=== PATIENT | male | born 1995 | race Caucasian/White ===

== ENCOUNTER 2016-02-16 01:06 | Emergency (ER) ==
[2016-02-16 01:24] VITALS: BP 116/079
--- NOTE | 2016-02-16 01:33 | PROVIDER DOCUMENTATION ---
HPI-Musculoskeletal Pain/Inj - GENERAL Chief Complaint: Back Injury Stated Complaint: BACK INJURY Time Seen by Provider: 02/16/16 01:25 Source: patient - HX OF PRESENT ILLNESS-MUSKULOSKELTAL Nature of Presenting Problem: 20 y/o WM c/o back pain after an injury on , where a piece of equipment fell on his back, with obvious ecchymosis on the lumbar area. States he has not been over to bend over without pain since then. He was bent over all day today [place] the [place] and his back is still hurting. He wants to be released back to work and was sent here by work. Denies bowel or bladder incontinence, saddle anesthesias or paresthesias. Pain in the lumbar area, non radiating. Review of Systems - Adult - REVIEW OF SYSTEMS - ADULT Constitutional: reports: no symptoms reported. denies: chills, fever, fatique Eyes: reports: no symptoms reported. denies: blurred vision, double vision, eye pain Ears, Nose, Mouth & Throat: reports: no symptoms reported. denies: ear pain, nose pain, throat pain Cardiovascular: reports: no symptoms reported. denies: chest pain, palpitations Respiratory: reports: no symptoms reported. denies: cough, shortness of breath , wheezing Gastrointestinal: reports: no symptoms reported. denies: abdominal pain, diarrhea, nausea, vomiting Genitourinary: reports: no symptoms reported. denies: dysuria, discharge, frequency, incontinence Musculoskeletal: reports: see HPI, back pain. denies: bone pain, muscle aches Integumentary: reports: no symptoms reported. denies: rash Neurological: reports: no symptoms reported. denies: headache/migraines Psychiatric: reports: no symptoms reported Endocrine: reports: no symptoms reported Hematologic/Lymphatic: reports: no symptoms reported Allergic/Immunologic: reports: no symptoms reported All Other Systems: Reviewed and Negative Past History - Adult - PAST MEDICAL HISTORY-ADULT Review of Records: reports: Old Records Reviewed, Nursing Assessment Review, Medications Reviewed, Social history reviewed & non-contributory. Major Childhood Illnesses: reports: denies history Cardiovascular: reports: denies history Respiratory: reports: denies history Gastrointestinal: reports: denies history Genitourinary: reports: denies history Musculoskeletal: reports: denies history Neurological: reports: denies history Endocrine/Immune: reports: denies history Other Conditions: reports: MRSA, other (Staf Infection) - PRIOR SURGERIES/PROCEDURES Surgical/Procedure History: reports: tonsillectomy, other - PRIOR HOSPITALIZATIONS Prior Hospitalizations: reports: none - IMMUNIZATION STATUS Childhood Immunizations: See Nurse Assessment Flu Vaccine: See Nurse Assessment - FAMILY HISTORY Family History: reviewed, not pertinent - SOCIAL HISTORY Smoking: denies Substance Use: none/never Alcohol Use Frequency: never Physical Exam-Injury Related - Physical Exam-Injury Related General Appearance: appears well, alert, no apparent distress Eyes: PERRL/EOMI, pink conjunctivae Head, Ears, Nose, Mouth & Throat: normocephalic/atraumatic, moist mucous membranes Neck: non-tender, full range of motion, supple, normal inspection. negative: C- spine tenderness Respiratory: chest non-tender, lungs clear, normal breath sounds, no pleuratic chest pain, no respiratory distress, no accessory muscle use. negative: respiratory distress, decreased breath sounds, accessory muscle use, crackles, rales, rhonchi, stridor, wheezing Cardiovascular: normal peripheral pulses, regular rate, rhythm, no edema, no gallop, no JVD, no murmur Back Exam: normal inspection, no vertebral tenderness, other (healing ecchymosis to the L1-L2 area. During range of motion, patient not able to bend over and stand back up without having to sit down.) Extremity: normal range of motion, non-tender, normal gait, normal inspection, no pedal edema, no calf tenderness, normal capillary refill, pelvis stable Integumentary: normal color, warm/dry Neurologic: grossly normal, no motor/sensory deficits Psych/Mental Status: AL, normal mood/affect, normal thought content, normal thought process, oriented x 3 Progress - PLAN OF CARE/RESULTS Progress/Plan/Lab Results: Vital Signs Temp Pulse Resp BP Pulse Ox 02/16/16 01:18 97.3 F L 84 18 116/079 99 strawberry [[place]] Allergy (Severe, Verified 11/13/15 16:24) SHORTNESS OF BREATH Ibuprofen [Motrin] 800 mg PO Q8H PRN PRN #20 tablet 11/13/15 Omeprazole [Prilosec] 20 mg PO DAILY@0700 #20 capsule 11/13/15 Azithromycin [Zithromax Z-Isiah] 250 mg PO DIRECTED #1 pkg 01/25/16 Prednisone 40 mg PO DAILY #3 tablet 01/25/16 Orders Category Date Time Status LUMBAR SPINE [RAD] Stat Exams 02/16/16 01:27 Ordered - XRAY 1 XRAY: Bilateral XRAY Study: Lumbar Spine Impression: Normal (NAD reviewed with Dr. Kelsey) Departure - Departure Time of Disposition Order: 01:44 DIAGNOSIS: Back pain Qualifiers: Back pain location: low back pain Chronicity: acute Back pain laterality: midline Sciatica presence: without sciatica Qualified Code(s): M54.5 - Low back pain Disposition: HOME 01 Certified Medical Emergency: Emergent Condition: Stable Additional Instructions: Follow up with [facility] if you have further complications ED Follow Up Instructions: You have been treated by a care provider in the Emergency Department. These instructions are being provided to you so you can have an understanding of how to care for yourself upon discharge. Upon discharge from the Emergency Department, you are responsible for making arrangements for follow-up care by a physician of your choice. Take all prescribed medications as directed. Return to the Emergency Department immediately for any new or worsening symptoms. You may call the Physician Referral phone number at [phone] to obtain a list of Physicians who are taking new patients. Prescriptions: Ketorolac [Toradol] 10 mg PO Q6H PRN PRN #20 tablet PRN Reason: Pain Attestation - Physician/ Mid-level Attestation Patient care was provided by Mid-level provider (RETAIL LEASING AGENT/PA):: Yes Mid-level provider:: Sophy Bernstein Mid-level documentation review:: The Mid-level provider documentation, treatment plan and medical decision making was reviewed by the physician who agrees with all treatment and medical decision making by the MLP.
--- NOTE | 2016-02-16 11:35 | Diag Imaging Result Document ---
PROCEDURE NAME: LUMBAR SPINE - 02/16/2016 PLAIN RADIOGRAPH OF THE LUMBAR SPINE, 6 VIEWS: COMPARISON: None available. FINDINGS: There is no discrete fracture, subluxation, or intrinsic osseous lesion. The surrounding soft tissues are grossly unremarkable. IMPRESSION: Essentially unremarkable plain radiograph.
== END 2016-02-16 02:07 | disposition home or self-care (01) ==
LOC: P.ED 01:06
DX: M54.5 Low back pain (principal); S30.0XXA Contusion of lower back and pelvis, initial encounter; Z86.14 Personal history of Methicillin resistant Staphylococcus aureus infection; W20.8XXA Other cause of strike by thrown, projected or falling object, initial encounter; Z79.52 Long term (current) use of systemic steroids; Z79.899 Other long term (current) drug therapy
CPT/HCPCS: 72110; 99283